=== PATIENT | female | born 1985 ===

== ENCOUNTER 2017-08-30 15:33 | Inpatient (IN) | payer MEDICAID, OTHER ==
[2017-08-30] MEDS: Lactated Ringer's 1,000 ML IV SCH ×4 (16:00→18:32)
[2017-08-30] MEDS ORDERED: ceFAZolin IV 2 gm in Dextrose 2 GM/50 ML BAG IVPB ONE (16:01)
[2017-08-30 16:03] VITALS: BMI 32.4
--- NOTE | 2017-08-30 16:10 | OBHP ---
Datetime: 08/30/2017 16:04 IP Adm Impression: Term, intrauterine ; Active labor IP Adm Impression Other: Previous C/C X2 IP Admit Plan: Admit to unit; Initiate Section protocol Admit Comment, IP Provider: 31yo with a prior c/s X2 reports c/o contraction pains. Has been scheduled for a repeat c/s in 2 days. Denies VB or LOF. Has not eaten today. MIGUE- Q 2-4 FHR- Category 1, Cx- /70/-3, Vtx Assessment: IUP at [facility] in Labor. Prior C/S X2 Multiparity requesting Sterilization Plan: Admit to LND Prepare for a repeat c/s and BTL. Pelvic Type - PN: Adequate Extremities - PN: Normal Abdomen - PN: Normal Back - PN: Normal Breast - PN: Normal Lungs - PN: Normal Heart - PN: Normal Thyroid - PN: Normal Neurologic - PN: Normal HEENT - PN: Normal General - PN: Normal Presentation-Admit: Vertex Membranes, Provider: Intact Contraction Comments Provider: Q2-3 Comments, ACOG Physical Exam: Abd: Soft, NT, BS- present Gestation - Est Wks by US: 38.5 EGA AdmitDate IP: 38.5 IP Chief Complaint: Uterine contractions; Maternal discomfort Dilatation, Provider: 1 Effacement, Provider: 70 Station, Provider: -3 Genitourinary Exam: Normal DTRs - PN: Normal
[2017-08-30] MEDS ORDERED: Sodium Chloride 0.9% 1,000 ML IV SCH ×2 (16:15→23:30)
[2017-08-30 16:28] LABS: BASO # 0.1 K/uL (0.0-0.2); BASO % 0.9 % (0.0-2.0); EOS # 0.3 K/uL (0.0-0.7); EOS % 2.1 % (0.0-4.0); HEMOGLOBIN 6.8 g/dL (12.0-16.0); LYMPH # 1.8 K/uL (1.0-4.3); LYMPH % 12.1 % (20.0-40.0); MEAN CELL VOLUME 70.2 fl (81.0-99.0); MEAN CORPUSCULAR HEMOGLOBIN 21.3 pg (27.0-31.0); MEAN CORPUSCULAR HGB CONC 30.3 g/dL (33.0-37.0); MEAN PLATELET VOLUME 8.9 fl (7.2-11.7); MONO # 1.2 K/uL (0.0-0.8); MONO % 7.6 % (0.0-10.0); NEUT # 11.7 K/uL (1.8-7.0); NEUT % 77.3 % (50.0-75.0); NRBC % 0.1 % (0.0-0.0); RBC 3.19 Mil/uL (3.80-5.20); RED CELL DISTRIBUTION WIDTH 16.7 % (11.5-14.5); WHITE BLOOD COUNT 15.1 K/uL (4.8-10.8)
[2017-08-30] MEDS ORDERED: Oxytocin 30 units/LR 500ML 30 U/500 ML BAG IV ONE (16:59)
[2017-08-30] MEDS ORDERED: Lactated Ringer's 1,000 ML IV SCH (17:30)
--- NOTE | 2017-08-30 17:55 | OBPN ---
Datetime: 08/30/2017 16:04 IP Progress Plan Other: Hemotransfusion IP Progress Impression Other: Low Hemoglobin 6.8gm/dl IP Progress Impression: Reassuring heart rate IP Informed Consent Obtain: Section Delivery Membranes, Provider: Intact Contraction Comments Provider: Q2-3 Gestation - Est Wks by US: 38.5 Presentation-Admit: Vertex IP Progress Note Comment: HB- Level 6.8g/dl Hemotransfusion X2 units before Delivery Consent obtained from Pt. Dilatation, Provider: 1 Effacement, Provider: 70 Station, Provider: -3
[2017-08-30] MEDS ORDERED: Bupivacaine HCl 0.25% PF (10 ml) Inj ONE ×2 (17:58→20:12)
[2017-08-30] MEDS ORDERED: Fentanyl/Bupivacaine HCl 250 ML EPI ONE (17:58)
[2017-08-30] MEDS ORDERED: Morphine 1 mg/ml preservative-free Inj(Duramorph) ONE (20:39)
[2017-08-30] MEDS ORDERED: Phenylephrine 10 mg/ml Inj ONE (20:43)
[2017-08-30] MEDS ORDERED: ePHEDrine 50 mg/ml Inj ONE (20:43)
[2017-08-30] MEDS ORDERED: Albuterol HFA 90 mcg/actuation (8 g) ONE (22:28)
[2017-08-30] MEDS ORDERED: Cellulose Hemostat 2X3 Sheet ONE (22:28)
[2017-08-30] MEDS ORDERED: DiphenhydrAMINE 50 mg/ml Inj ONE (22:29)
[2017-08-30] MEDS ORDERED: DiphenhydrAMINE 50 mg/ml Inj IVP PRN (22:38)
[2017-08-30] MEDS ORDERED: oxyCODONE 5 mg Immediate Release Tab PO PRN ×2 (23:01→23:28)
--- NOTE | 2017-08-31 00:09 | PCM.SURG1 ---
Surgeon's Initial Post Op Note - Surgeon's Notes Surgeon: Dr Jeffrey Plaster Molder: Eliana Espinoza ( Family Practice resident) Type of Anesthesia: Spinal Anesthesia Administered By: Dr Alvarez Pre-Operative Diagnosis: IUP at 39wks in labor. Previous Section X2. Request for Sterilization. Operative Findings: Live Male female infant with BW of 2157gms and scores 9 and 9. Baby delivered in cephalic presentation in the left OP position. Fundal placenta, clear amniotic fluid, thin lower uterine segment,. Uterus , fallopian tubes and ovaries appear normal. IVF- 2000mls. EBL- 600mls Post-Operative Diagnosis: Same as preop Diagnosis Operation Performed: Repeat Low transverse section and bilateral tubal ligation via the pomeroys method Specimen/Specimens Removed: Portions of the Left and right fallopian tubes Estimated Blood Loss: EBL {In ML}: 600 Blood Products Given: N/A Post-Op Condition: Good Date of Surgery/Procedure: 08/31/17 Time of Surgery/Procedure: 00:10
[2017-08-31] MEDS ORDERED: oxyCODONE 5 mg Immediate Release Tab PO SCH (01:00)
[2017-08-31 02:40] LABS: BASO # 0.1 K/uL (0.0-0.2); BASO % 0.3 % (0.0-2.0); EOS % 0.2 % (0.0-4.0); HEMOGLOBIN 7.8 g/dL (12.0-16.0); LYMPH # 1.3 K/uL (1.0-4.3); MEAN CELL VOLUME 72.5 fl (81.0-99.0); MEAN CORPUSCULAR HEMOGLOBIN 22.3 pg (27.0-31.0); MEAN CORPUSCULAR HGB CONC 30.8 g/dL (33.0-37.0); MEAN PLATELET VOLUME 8.5 fl (7.2-11.7); MONO # 0.9 K/uL (0.0-0.8); MONO % 4.8 % (0.0-10.0); NEUT # 15.9 K/uL (1.8-7.0); NEUT % 87.7 % (50.0-75.0); PLATELET COUNT 289 K/uL (130-400); RBC 3.51 Mil/uL (3.80-5.20); RED CELL DISTRIBUTION WIDTH 18.3 % (11.5-14.5); WHITE BLOOD COUNT 18.1 K/uL (4.8-10.8)
[2017-08-31] MEDS ORDERED: Lactated Ringer's 1,000 ML IV SCH ×2 (02:45→02:53)
[2017-08-31 02:49] LABS: ALB/GLOB RATIO 0.9 (1.0-2.1); ALBUMIN 2.7 g/dL (3.5-5.0); ALT/SGPT 13 U/L (9-52); AST/SGOT 22 U/L (14-36); BLOOD UREA NITROGEN 4 mg/dl (7-17); CALCIUM 8.2 mg/dL (8.4-10.2); GFR AFRICAN-AMERICAN > 60; GFR NON-AFRICAN AMERICAN > 60
[2017-08-31] MEDS ORDERED: oxyCODONE 5 mg Immediate Release Tab PO PRN (02:53)
[2017-08-31] MEDS ORDERED: DiphenhydrAMINE 50 mg/ml Inj IVP PRN ×2 (02:53→08:57)
[2017-08-31 04:39] LABS: BANDS 3 % (0-2); LYMPHOCYTE 10 % (20-50); NEUTROPHIL 83 % (42-75); TOTAL CELLS COUNTED 100
[2017-08-31 04:40] LABS: ANISOCYTOSIS SLIGHT; HYPOCHROMIC MODERATE; MICROCYTOSIS SLIGHT; MONOCYTE 4 % (0-10); PLATELET ESTIMATE NORMAL (NORMAL)
[2017-08-31] MEDS ORDERED: Albuterol HFA 90 mcg/actuation (8 g) INH PRN ×2 (07:46→08:57)
--- NOTE | 2017-08-31 08:07 | OBPPN ---
Datetime: 08/31/2017 08:01 PP Pain Prov: Within normal limits PP Nausea Prov: Denies PP Flatus Prov: No PP BM Prov: No PP Abdomen/Uterus Prov: Normal PP Lochia Prov: Normal PP Extremities Prov: Normal PP C/S Incision Prov: Normal PP Impression Prov: Normal progression PP Plan Prov: Continue present management PP Progress Note Prov: POD 1 s/p Repeat c/s, BTL, doing well, bottle feeding for now Remove reinoso this am, advance diet to regular for lunch OOB today Vital Signs Provider PP: Reviewed
--- NOTE | 2017-08-31 09:50 | OBDS ---
MATERNAL INFORMATION Provider Comments: Repeat Section with BTL with delivery of a viable female infant BW 2157 and scores of 9 and 9. BTL performed. EBL- 600mls LABOR SUMMARY EDC: 09/08/2017 00:00 No. Babies in Womb: 1 LABOR INFORMATION Onset of Labor: 08/29/2017 14:00 MEMBRANES Membranes Rupture Method: Spontaneous Rupture of Membranes: 08/30/2017 17:00 Length of Rupture (hrs): 4.95 Amniotic Fluid Color: Clear Amniotic Fluid Amount: Moderate Amniotic Fluid Odor: Normal STAGES OF LABOR Stage 3 hrs: 0 Stage 3 min: 1 Total Time in Labor hrs: 31 Total Time in Labor min: 58 BABY A INFORMATION Infant Delivery Date/Time: 08/30/2017 21:57 Method of Delivery: Born in Route : No : N/A Forceps: N/A Vacuum Extraction: N/A Shoulder Dystocia : No SHOULDER DYSTOCIA BABY A Infant Delivery Date/Time: 08/30/2017 21:57 PRESENTATION/POSITION BABY A Presentation: Cephalic Cephalic Presentation: Vertex PLACENTA INFORMATION BABY A Placenta Delivery Time : 08/30/2017 21:58 Placenta Method of Delivery: Spontaneous Placenta Status: Delivered SCORES BABY A Heart Rate 1 min: >100 bpm Resp Effort 1 min: Good Cry Reflex Irritability 1 min: Cough or Sneeze or Pulls Away Muscle Tone 1 min: Active Motion Color 1 min: Body [place], Extremities Blue Resuscitation Effort 1 min: Tactile Stimulation SCORE 1 MIN: 9 Heart Rate 5 min: >100 bpm Resp Effort 5 min: Good Cry Reflex Irritability 5 min: Cough or Sneeze or Pulls Away Muscle Tone 5 min: Active Motion Color 5 min: Body [place], Extremities Blue Resuscitation Effort 5 min: Tactile Stimulation SCORE 5 MIN: 9 INFORMATION BABY A Gestational Age at Delivery: 38.5 Gestational Status: Term Infant Outcome : Liveborn Condition : Stable Sex: Female IDENTIFICATION/MEDS BABY A ID Band Number: [id number] ID Band Location: Left Leg; Left Arm WEIGHT/LENGTH BABY A Birthweight (gms): 2780 Weight (lb): 6 Weight (oz): 2 Length Inches: 19.50 Length cms: 49.5 CORD INFORMATION BABY A No. Cord Vessels: 3 Nuchal Cord : N/A Cord Blood Taken: Yes Suction: Mouth; Nose
[2017-08-31] MEDS ORDERED: Oxycodone/Acetaminophen 5/325 mg Tab PO PRN (10:08)
[2017-08-31] MEDS ORDERED: Tdap Vaccine 0.5 ml Vial (10-64 yrs) IM ONE (10:16)
--- NOTE | 2017-08-31 10:34 | OP ---
PROCEDURE DATE: PREOPERATIVE DIAGNOSES: Intrauterine at 39 weeks in active labor, history of previous section x2 and requests for permanent sterilization. POSTOPERATIVE DIAGNOSES: Intrauterine at 39 weeks in active labor, history of previous section x2 and requests for permanent sterilization. PROCEDURES DONE: Repeat low-transverse section with bilateral tubal ligation using Riva method. SURGEON: Augustus Jeffrey MD. CERTIFICATION AND SELECTION SPECIALIST: Family practice resident. Corporate Investigator for this procedure was needed for exposure of tissues and help in the delivery of the baby. The psychological assistant remained with the surgery throughout its entire length. TYPE OF ANESTHESIA: Spinal. ANESTHESIA ADMINISTERED BY: Lencho Alvarez MD FINDINGS: A live male infant with birthweight of 2107 grams and scores of 9 in the first and fifth minutes respectively. Baby was delivered in cephalic presentation in left occiput-posterior positioning. Placenta was fundal. Amniotic fluid was clear. The lower uterine segment was very thin. The uterus as well as both fallopian tubes and ovaries appeared normal. The bladder had been drawn up to the cover the lower uterine segment. INTRAVENOUS FLUID INTAKE: 2000 mL. ESTIMATED BLOOD LOSS: 600 mL. DESCRIPTION OF PROCEDURE: After obtaining informed consent, the patient was sent to the OR with IV running and Douglas catheter is in place. The patient was sat on the OR table and spinal anesthesia was administered without any incident. The patient was then placed in the supine position with a left lateral tilt. The patient was then prepped and draped in the usual sterile fashion. A Pfannenstiel skin incision was made through the old incisional scar using a scalpel. This incision was carried through the subcutaneous tissues so the rectus fascia was identified. Using a Bovie device, a transverse incision was made in the rectus fascia and this was extended to both sides by means of a sharp dissection using Bovie device. The rectus fascia was then lifted off the underlying rectus muscles, both superiorly and inferiorly by means of a blunt dissection and sharp dissection. The rectus muscle was in the midline by tinting the muscles on both sides with Allis clamps. Once the peritoneum was encountered, it was also tented between two Misty clamps and sharply entered with good visualization of the bladder using Metzenbaum scissors. Once the abdominal cavity was entered, the above findings were noted. The bladder has been drawn up over the lower uterine segment. The vesicouterine fold of peritoneum was identified, incised in a transverse fashion and then the bladder dissected of anterior surface of the lower uterine segment. This was retracted inferiorly. A lower transverse incision was made through the lower uterine segment which are out at this point. The incision was sent through the myometrial layers, so the amniotic membranes were identified. The amniotic membranes were ruptured with a pickup forceps and the baby, which was positioned in the left to the posterior positioning was delivered. The mouth and nostrils were bulb suctioned and three vessel cord was clamped and cut and the baby given to the nurse. The placenta was manually removed from the uterine cavity after which the uterus was brought out of the abdominal cavity. The uterine cavity was cleaned of all debris using dry laparotomy pads and the uterine incision was closed in 2 layers using Vicryl number 0. The first layer in a running locked fashion and the second layer in a running fashion imbricating the first layer. The fallopian tube on the left side was elevated with a [place] forceps and a loop of about 4 cm of fallopian tube was made and the base of the loop was doubly ligated using 2-0 plain catgut. The portion of the tube above this ligation was incised with Metzenbaum scissors and was sent for pathology evaluation. The same procedure was done on the right fallopian tube with excision of about 3 cm length of the tube for pathology evaluation. Once this had been completed and hemostasis was noted, irrigation of the pelvis with warm normal saline was made. The uterus was then returned into the abdominal cavity and then the tubal ligation points were re-inspected for hemostasis. Once hemostasis was noted, all instruments were taken out of the abdominal cavity and attention was then turned on to the anterior abdominal wall, which was closed in layers with 2-0 Vicryl for the peritoneum and the rectus muscles. The rectus fascia was brought together by means of number 0 Vicryl. The subcutaneous tissue was reapproximated using number 2-0 plain catgut. The skin was closed in a subcuticular fashion using number 4-0 Vicryl. All counts of instruments, laparotomy pads, and needles used were correct x3 and the patient was sent to the recovery room, awake and in stable condition. Augustus Jeffrey MD
[2017-08-31] MEDS ORDERED: Pneumococcal 23-Valent Vaccine IM ONE (11:19)
[2017-08-31 12:24] LABS: BASO # 0.1 K/uL (0.0-0.2); BASO % 0.3 % (0.0-2.0); EOS # 0.1 K/uL (0.0-0.7); EOS % 0.7 % (0.0-4.0); HEMOGLOBIN 7.8 g/dL (12.0-16.0); LYMPH # 1.5 K/uL (1.0-4.3); LYMPH % 9.2 % (20.0-40.0); MEAN CELL VOLUME 71.5 fl (81.0-99.0); MEAN CORPUSCULAR HEMOGLOBIN 22.8 pg (27.0-31.0); MEAN CORPUSCULAR HGB CONC 31.9 g/dL (33.0-37.0); MEAN PLATELET VOLUME 8.7 fl (7.2-11.7); MONO # 0.8 K/uL (0.0-0.8); MONO % 5.3 % (0.0-10.0); NEUT # 13.4 K/uL (1.8-7.0); NEUT % 84.5 % (50.0-75.0); RBC 3.42 Mil/uL (3.80-5.20); RED CELL DISTRIBUTION WIDTH 18.4 % (11.5-14.5); WHITE BLOOD COUNT 15.9 K/uL (4.8-10.8)
[2017-08-31 13:27] LABS: HEPATITIS B SURFACE AG Negative (NEGATIVE)
[2017-08-31] MEDS: Oxycodone/Acetaminophen 5/325 mg Tab PO PRN (23:24)
[2017-09-01] MEDS: Oxycodone/Acetaminophen 5/325 mg Tab PO PRN (06:11)
--- NOTE | 2017-09-01 19:53 | OBPPN ---
Datetime: 09/01/2017 12:50 PP Pain Prov: Within normal limits PP Nausea Prov: Denies PP Flatus Prov: No PP BM Prov: No PP Breasts Prov: Normal PP Heart Prov: Normal PP Lungs Prov: Normal PP Abdomen/Uterus Prov: Normal PP CVA Tenderness Prov: Normal PP Extremities Prov: Normal PP C/S Incision Prov: Normal PP Progress Prov: Normal PP Impression Prov: Normal progression PP Plan Prov: Discharge PP Progress Note Prov: s: no c/o. desires d/c this evening. tolerating reg diet. states she has supp ort at home i: s/p cd pod2 doing well p: dulcolax supp if not bm f/u 10days for incision check w/ ob postop _ pp precautions Vital Signs Provider PP: Reviewed; Within Normal Limits
--- NOTE | 2017-09-01 19:55 | OBDCSUM ---
Datetime: 09/01/2017 19:52 Discharged to, Provider: Home Follow up at, Provider: ob Disch Instr Activity: Normal activity; May Shower Disch Instr Diet: Regular Discharge Instructions, Provider: Specific instructions as noted Discharge Diagnosis, Provider: Term Delivered Discharge Time: 09/01/2017 19:54 Follow up in weeks, Provider: 10-12days Disch Referrals: None Discharge Instruct Comment, Prov: pp and postop Contraception discussed, Prov: No Disch Activity Restrictions: No exercising; No lifting; No driving; No sexual activity; Nothing in v agina - [place], tampons, douche Discharge Comment, Provider: rx for motrin, feso4, pnv, percocet
[2017-09-02 05:14] VITALS: BP 114/71; PULSE 83; RESP 20; TEMP 98.7; O2SAT 99
== END 2017-09-01 23:20 | disposition home or self-care (01) | DRG 371 ==
LOC: H.EROB2 15:33 → H.L&D 16:00 → H.OB/GYN 08-31 02:45
PROVIDERS: ADMIT Obstetrics & Gynecology; ATTEND Obstetrics & Gynecology
PROC: 10D00Z1 Extraction of Products of Conception, Low, Open Approach (ICD-10-PCS; principal; 2017-08-30)
PROC: 0UB70ZZ Excision of Bilateral Fallopian Tubes, Open Approach (ICD-10-PCS; 2017-08-30)
PROC: 30233N1 Transfusion of Nonautologous Red Blood Cells into Peripheral Vein, Percutaneous Approach (ICD-10-PCS; 2017-08-30)
PROC: 4A1HXCZ Monitoring of Products of Conception, Cardiac Rate, External Approach (ICD-10-PCS; 2017-08-30)
PROC: 3E0234Z Introduction of Serum, Toxoid and Vaccine into Muscle, Percutaneous Approach (ICD-10-PCS; 2017-08-31)
DX: O34.211 Maternal care for low transverse scar from previous cesarean delivery (principal); O09.43 Supervision of pregnancy with grand multiparity, third trimester; Z30.2 Encounter for sterilization; Z37.0 Single live birth; Z3A.38 38 weeks gestation of pregnancy; Z23 Encounter for immunization; Z88.6 Allergy status to analgesic agent